=== PATIENT | female | born 1965 | race American Indian/Alaskan Native ===

== ENCOUNTER 2017-07-01 12:18 | Emergency (ER) | payer SELFPAY ==
[2017-07-01 12:42] VITALS: BP 125/84
[2017-07-01] MEDS ORDERED: TORADOL IM ONE (14:31)
[2017-07-01] MEDS ORDERED: CLEOCIN PO ONE (14:32)
[2017-07-01] MEDS ORDERED: KEFLEX PO ONE (14:32)
--- NOTE | 2017-07-01 16:06 | Emergency Department Report ---
- General Chief complaint: Skin/Abscess/Foreign Body Stated complaint: SWELLING/KNOTS ON BODY Time Seen by Provider: 07/01/17 14:04 Source: patient Mode of arrival: Ambulatory Limitations: No Limitations - History of Present Illness Initial comments: 52-year-old -[place] female comes in with multiple bumps on her body. Patient states that she's had this before. Patient reports that she had taken Bactrim in the past which cleared it up and down the lesions are coming back. She reports that the lesions are itchy and painful at the same time. Patient reports lesions on her left lateral calf, left labia, and left buttock. She reports no past medical history currently takes no medications on a daily basis and has no known drug allergies. MD complaint: lesion -: year(s) (3 on and off) Location: buttocks, genitals, LLE Severity: moderate Quality: burning Improves with: none Worsens with: none Associated symptoms: denies other symptoms Treatments Prior to Arrival: none - Related Data Previous Rx's Medication Instructions Recorded Last Taken Type Clindamycin [Clindamycin CAP] 300 mg PO Q8H #30 cap 07/01/17 Unknown Rx Sulfamethoxazole/Trimethoprim 1 each PO BID #20 tablet 07/01/17 Unknown Rx [Bactrim Ds Tablet] Allergies Allergy/AdvReac Type Severity Reaction Status Date / Time No Known Allergies Allergy Unverified 07/01/17 12:42 Abscess Boil HPI - HPI Chief Complaint: Skin/Abscess/Foreign Body Stated Complaint: SWELLING/KNOTS ON BODY Time Seen by Provider: 07/01/17 14:04 Home Medications: Previous Rx's Medication Instructions Recorded Last Taken Type Clindamycin [Clindamycin CAP] 300 mg PO Q8H #30 cap 07/01/17 Unknown Rx Sulfamethoxazole/Trimethoprim 1 each PO BID #20 tablet 07/01/17 Unknown Rx [Bactrim Ds Tablet] Allergies/Adverse Reactions: Allergies Allergy/AdvReac Type Severity Reaction Status Date / Time No Known Allergies Allergy Unverified 07/01/17 12:42 ED Review of Systems ROS: Stated complaint: SWELLING/KNOTS ON BODY Other details as noted in HPI Constitutional: denies: chills, fever Eyes: denies: eye pain, eye discharge, vision change ENT: denies: ear pain, throat pain Respiratory: denies: cough, shortness of breath, wheezing Cardiovascular: denies: chest pain, palpitations Endocrine: no symptoms reported Gastrointestinal: denies: abdominal pain, nausea, diarrhea Genitourinary: denies: urgency, dysuria, discharge Musculoskeletal: denies: back pain, joint swelling, arthralgia Skin: lesions, pruritus Neurological: denies: headache, weakness, paresthesias Psychiatric: denies: anxiety, depression Hematological/Lymphatic: denies: easy bleeding, easy bruising ED Past Medical Hx - Past Medical History Previous Medical History?: No - Surgical History Past Surgical History?: No - Social History Smoking Status: Never Smoker Substance Use Type: None - Medications Home Medications: Home Medications Medication Instructions Recorded Confirmed Last Taken Type Clindamycin [Clindamycin CAP] 300 mg PO Q8H #30 cap 07/01/17 Unknown Rx Sulfamethoxazole/Trimethoprim 1 each PO BID #20 tablet 07/01/17 Unknown Rx [Bactrim Ds Tablet] ED Physical Exam - General Limitations: No Limitations General appearance: alert, in no apparent distress - Head Head exam: Present: atraumatic, normocephalic - Eye Eye exam: Present: normal appearance - ENT ENT exam: Present: mucous membranes moist - Neck Neck exam: Present: normal inspection - Respiratory Respiratory exam: Present: normal lung sounds bilaterally. Absent: respiratory distress - Cardiovascular Cardiovascular Exam: Present: regular rate, normal rhythm. Absent: systolic murmur, diastolic murmur, rubs, gallop - GI/Abdominal GI/Abdominal exam: Present: soft, normal bowel sounds - External exam: Present: swelling (left labia majora swelling and tenderness nonerythematous) - Extremities Exam Extremities exam: Present: normal inspection - Back Exam Back exam: Present: normal inspection - Neurological Exam Neurological exam: Present: alert, oriented X3 - Psychiatric Psychiatric exam: Present: normal affect, normal mood - Skin Skin exam: Present: warm, dry, intact, erythema (Left lower calf swelling erythematous with mild induration head has a whitish pinpoint area. Tender to palpate no discharge appreciated. ). Absent: rash ED Course Vital Signs 07/01/17 12:39 Temperature 98.6 F Pulse Rate 99 H Respiratory 16 Rate Blood Pressure 125/84 O2 Sat by Pulse 99 Oximetry Critical care attestation.: If time is entered above; I have spent that time in minutes in the direct care of this critically ill patient, excluding procedure time. ED Disposition Clinical Impression: Cellulitis and abscess of left leg Disposition: DC-01 TO HOME OR SELFCARE Is pt being admited?: No Does the pt Need Aspirin: No Condition: Stable Instructions: Cellulitis (ED) Additional Instructions: Please complete antibiotics as prescribed. You can take Tylenol or Motrin for pain Claritin or Alanis or Zyrtec for itchiness. Follow up with her primary care provider if symptoms persist or gets worse. Prescriptions: Clindamycin [Clindamycin CAP] 300 mg PO Q8H #30 cap Sulfamethoxazole/Trimethoprim [Bactrim Ds Tablet] 1 each PO BID #20 tablet Referrals: PRIMARY CARE, [Primary Care Provider] - 3-5 Days [facility] [Provider Group] - 3-5 Days Forms: Accompanied Note, Work/School Release Form(ED)
--- NOTE | 2017-07-01 19:54 | Emergency Department Report ---
Chief Complaint: Skin/Abscess/Foreign Body Stated Complaint: SWELLING/KNOTS ON BODY Time Seen by Provider: 07/01/17 14:04 - HPI History of Present Illness: The patient is a 32-year-old female presents for evaluation of swelling and pain to the left leg. The patient reports left leg redness, swelling, and moderate to severe pain. She states that she has experienced similar areas of redness, swelling and pain that come to a head and drain fluid. She shares that she has another lesion on buttock. She denies fever, chills, night sweats , nausea, vomiting, chest pain, dyspnea, abdominal pain. - Exam Vital Signs: Vital Signs 07/01/17 12:39 Temperature 98.6 F Pulse Rate 99 H Respiratory 16 Rate Blood Pressure 125/84 O2 Sat by Pulse 99 Oximetry MSE screening note: Focused history and physical exam performed. Due to findings the following was ordered: ED Disposition for MSE Clinical Impression: Cellulitis and abscess of left leg Disposition: DC-01 TO HOME OR SELFCARE Condition: Stable Instructions: Cellulitis (ED) Additional Instructions: Please complete antibiotics as prescribed. You can take Tylenol or Motrin for pain Claritin or Alanis or Zyrtec for itchiness. Follow up with her primary care provider if symptoms persist or gets worse. Prescriptions: Clindamycin [Clindamycin CAP] 300 mg PO Q8H #30 cap Sulfamethoxazole/Trimethoprim [Bactrim Ds Tablet] 1 each PO BID #20 tablet Referrals: [facility] [Provider Group] - 3-5 Days PRIMARY CARE, [Primary Care Provider] - 3-5 Days Forms: Accompanied Note, Work/School Release Form(ED)
== END 2017-07-01 16:58 | disposition home or self-care (01) ==
LOC: ED 12:18
DX: L02.416 Cutaneous abscess of left lower limb (principal); L03.116 Cellulitis of left lower limb
CPT/HCPCS: 87076; 87116; 87186; 96372; 99282; J1885